=== PATIENT | male | born 1965 ===

== ENCOUNTER 2017-09-29 22:47 | Emergency (ER) | payer MEDICAID ==
[~2017-09-29] VITALS: Ht 175.3 cm; Wt 72.6 kg
[2017-09-29] MEDS ORDERED: Pantoprazole Inj IVP ONE (23:15)
[2017-09-29 23:17] VITALS: BP 125/77
[2017-09-29 23:29] LABS: HEMATOCRIT 38.7 % (42.0-52.0); HEMOGLOBIN 14.5 G/DL (14.2-18.0); MEAN CORPUSCULAR VOLUME 95 FL (80-99); PLATELET COUNT 53 K/UL (150-450); RED BLOOD COUNT 4.06 M/UL (4.70-6.10); RED CELL DISTRIBUTION WIDTH 11.2 % (11.6-14.8); WHITE BLOOD COUNT 4.5 K/UL (4.8-10.8)
[2017-09-29 23:44] LABS: ANION GAP 10 mmol/L (5-15); BLOOD UREA NITROGEN 9 mg/dL (7-18); CALCIUM 8.7 MG/DL (8.5-10.1); CARBON DIOXIDE 24 MMOL/L (21-32); CHLORIDE 106 MMOL/L (98-107); INR 1.1 (0.9-1.1); POTASSIUM 3.3 MMOL/L (3.5-5.1); SODIUM 140 MMOL/L (136-145)
[2017-09-29 23:58] LABS: ALANINE AMINOTRANSFERASE 23 U/L (12-78); ALBUMIN 3.5 G/DL (3.4-5.0); ALBUMIN/GLOBULIN RATIO 0.9 (1.0-2.7); ALKALINE PHOSPHATASE 129 U/L (46-116); ASPARTATE AMINO TRANSFERASE 40 U/L (15-37); BILIRUBIN,TOTAL 1.3 MG/DL (0.2-1.0); CREATINE KINASE 511 U/L (26-308)
[2017-09-30 00:06] LABS: BILIRUBIN,DIRECT 0.5 MG/DL (0.0-0.3)
[2017-09-30 00:09] LABS: APPEARANCE,URINE CLEAR; BILIRUBIN, URINE NEGATIVE (NEGATIVE); COLOR,URINE PALE YELLOW; GLUCOSE, URINE (UA) NEGATIVE (NEGATIVE); KETONES,URINE NEGATIVE (NEGATIVE); LEUKOCYTE ESTERASE ,URINE NEGATIVE (NEGATIVE); NITRITE,URINE NEGATIVE (NEGATIVE); PH,URINE 6 (4.5-8.0); PROTEIN,URINE NEGATIVE (NEGATIVE); UROBILINOGEN,URINE NORMAL MG/DL (0.0-1.0)
[2017-09-30] MEDS ORDERED: PRILOSEC OTC20 MG ORAL (01:07)
--- NOTE | 2017-09-30 01:07 | Emergency Room Report ---
History of Present Illness General Chief Complaint: Chest Pain Source: Patient, EMS Present Illness HPI This is a 52-year-old male who has a history of alcohol abuse and also dextrocardia. He presents with chief complaint of right any chest pain has been constant for a week. Worse with drinking. No fever chills but no nausea no vomiting. Pain is 9/10. He called 911 after leaving his friend's house. He is been drinking. No other complaint. No relief with aspirin and nitroglycerin by EMS. Allergies: Coded Allergies: No Known Allergies (Unverified , 09/29/17) Patient History Past Medical History: see triage record, old chart reviewed Past Surgical History: other Pertinent Family History: none Social History: Reports: alcohol use Immunizations: other Reviewed Nursing Documentation: PMH: Agreed, PSxH: Agreed Nursing Documentation-PMH Hx Cardiac Problems: Yes - dextrocardia History Of Psychiatric Problem: Yes - Depression, Bipolar, schizophrenia Review of Systems Eye: Denies: eye pain, blurred vision ENT: Denies: ear pain, nose congestion, throat swelling Respiratory: Denies: cough, shortness of breath Cardiovascular: Reports: chest pain, Denies: palpitations Gastrointestinal: Denies: abdominal pain, diarrhea, nausea, vomiting Musculoskeletal: Denies: back pain, joint pain Skin: Denies: rash Neurological: Denies: headache, numbness Endocrine: Denies: increased thirst, increased urine Hematologic/Lymphatic: Denies: easy bruising All Other Systems: negative except mentioned in HPI Physical Exam Vital Signs Date Time Temp Pulse Resp B/P (MAP) Pulse Ox O2 Delivery O2 Flow Rate FiO2 09/29/17 22:42 98.1 86 15 143/92 99 vitals normal Sp02 EP Interpretation: reviewed, normal General Appearance: well appearing, no apparent distress, alert, obese, other - Intoxicated Head: normocephalic, atraumatic Eyes: bilateral eye PERRL, bilateral eye EOMI ENT: hearing grossly normal, normal pharynx Neck: full range of motion, supple, no meningismus Respiratory: lungs clear, normal breath sounds, other - Recent producible right upper quadrant/lower chest area pain Cardiovascular #1: regular rate, rhythm, no murmur Gastrointestinal: normal bowel sounds, non tender, no mass, no organomegaly, no bruit, non-distended Musculoskeletal: back normal, gait/station normal, normal range of motion Psychiatric: mood/affect normal Skin: warm/dry Medical Decision Making Diagnostic Impression: Primary Impression: Chest pain Qualified Codes: R07.9 - Chest pain, unspecified Additional Impressions: Alcohol abuse Dextrocardia Alcoholic gastritis without bleeding Qualified Codes: K29.20 - Alcoholic gastritis without bleeding Alcoholic liver disease ER Course Patient with chest pain. Atypical in nature. Most likely GI related. No evidence of ACS, PE, dissection to name a few. We'll discharge home. Lab Results Impression labs unremarkable EKG Diagnostic Results Rate: normal Rhythm: NSR ST Segments: no acute changes Rhythm Strip Diag. Results Rhythm Strip Time: 01:05 EP Interpretation: yes Rate: 80 Rhythm: NSR, no PVC's, no ectopy Chest X-Ray Diagnostic Results Chest X-Ray Diagnostic Results : Chest X-Ray Ordered: Yes # of Views/Limited/Complete: 1 View Indication: Chest Pain EP Interpretation: Yes Interpretation: no consolidation, no effusion, no pneumothorax, no acute cardiopulmonary disease Impression: Other - Dextrocardia Electronically Signed by: Alonso Amaral MD Last Vital Signs Date Time Temp Pulse Resp B/P (MAP) Pulse Ox O2 Delivery O2 Flow Rate FiO2 09/29/17 23:17 75 15 09/29/17 23:17 98.1 125/77 100 Status: improved Disposition: HOME, SELF-CARE Condition: Stable Scripts Omeprazole Magnesium (PRILOSEC OTC) 20 Mg Tablet. 20 MG ORAL DAILY, #30 TAB Prov: ALONSO AMARAL M.D. 09/30/17 Referrals: NOT CHOSEN [facility]/,REFERRING (PCP) Additional Instructions: Stop drinking alcohol. Followup your DrDeborah in 7 days. Go to rehabilitation. Return worse. ALONSO AMARAL M.D. Sep 30, 2017 01:07
[2017-09-30 01:18] VITALS: BP 123/67
[2017-09-30 01:29] VITALS: BP 123/67
--- NOTE | 2017-10-01 18:26 | Cardiology Report ---
APPROVED REPORT EKG Measurement Heart [id number] 182P [id number] Normal sinus rhythm Left posterior fascicular block Septal infarct, age undetermined Inferior infarct, age undetermined Abnormal ECG
--- NOTE | 2017-10-02 16:24 | Diagnostic Imaging Report ---
Indication: Chest pain Technique: One view of the chest Comparison: none Findings: Heart is upper limits of normal in size. There is a nodule in the left lung base which is probably not definitively calcified. Lungs and pleural spaces otherwise clear. Impression: No definite acute process 1.5 cm left basilar nodule, likely but not definitively calcified. Correlate with any prior studies that may be available, consider CT for further evaluation otherwise. This was discussed by phone with Dr. Ferreira at the time of interpretation
== END 2017-09-30 01:30 | disposition home or self-care (01) ==
LOC: EDBD 22:47 → EMR 23:30
DX: R07.89 Other chest pain (principal); F10.10 Alcohol abuse, uncomplicated; Q24.0 Dextrocardia; K29.20 Alcoholic gastritis without bleeding; K70.9 Alcoholic liver disease, unspecified
CPT/HCPCS: 36415; 71045; 80053; 81003; 82248; 82550; 82553; 83690; 84484; 85007; 85025; 85610; 85730; 93005; 96361; 96374; 99284; C9113